=== PATIENT | female | born 1995 | race Two or more races ===

== ENCOUNTER 2019-02-19 22:00 | Emergency (ER) | payer OTHER ==
[~2019-02-19] VITALS: Ht 167.6 cm; Wt 81.6 kg
[2019-02-19 22:05] VITALS: BP 136/90
[2019-02-19] MEDS ORDERED: IBUPROFEN 400 MG TABLET ONE (22:29)
[2019-02-19] MEDS ORDERED: IBUPROFEN 200 MG TABLET ONE (22:29)
[2019-02-19] MEDS ORDERED: IBUPROFEN 400 MG TABLET PO ONE (22:30)
== END 2019-02-19 22:31 | disposition home or self-care (01) ==
LOC: ER 22:00
DX: L03.317 Cellulitis of buttock (principal); F17.200 Nicotine dependence, unspecified, uncomplicated